=== PATIENT | male | born 1990 | race Caucasian/White ===

== ENCOUNTER 2024-06-18 12:27 | Emergency (ER) | payer OTHER, SELFPAY ==
[2024-06-18 12:56] VITALS: BP 140/80; PULSE 74; TEMP 37.1; O2SAT 99; BMI 19.5
--- NOTE | 2024-06-18 13:54 | CT_ITS ---
The [address] [address] Patient Name: VANIA FLORIAN MRN: [id number] date: 1990 Sex: M Assigned Patient Location: ER Current Patient Location: ER Accession/Order Number: [id number] Exam Date: 06/18/2024 14:12 Report Date: 06/18/2024 15:14 At the request of: RUDDY CHAU Procedure: CT cervical spine wo con EXAM: CT cervical spine wo con HISTORY: Pain. COMPARISON: None. TECHNIQUE: Contiguous transaxial images obtained from skullbase through cervical spine without administration of intravenous contrast. Coronal and sagittal reformations were obtained. Dose reduction: mA and/or kV are were adjusted by automated exposure control software based upon patients height and weight. FINDINGS: There is no prevertebral soft tissue swelling or acute cervical spine fracture. Intervertebral disc spaces and vertebral body heights are normal. There is no cervical listhesis. The osseous central canal and osseous neural foramina are patent. CT/CT cervical spine wo con IMPRESSION: 1. No acute cervical spine fracture. Electronically authenticated by: XIAO SALVADOR Date: 06/18/2024 15:14
--- NOTE | 2024-06-18 15:49 | ED_ITS ---
HPI HPI - General Adult General Chief complaint: Extremity Problem, Nontraumatic Stated complaint: UPPER LEFT EXTREMITY PAIN Time Seen by Provider: 06/18/24 15:40 Source: patient Mode of arrival: walk-in Limitations: no limitations History of Present Illness HPI narrative: Patient is a 33-year-old male who presents to the emergency department for a 4- month history of pain in the back of the neck radiating to the left shoulder and a burning pain going into his left arm. He has not been seen by his primary care provider for this. He states he was seen at the [facility] but no testing was done and he was not sent home with any prescriptions. He presents to the ER today because his was able to convince him to come into the ER. He denies any falls or injuries. No medications taken prior to arrival. Related Data Previous Rx's ?Medication ?Instructions ?Recorded ketorolac 10 mg tablet 10 mg PO TID PRN pain #10 tabs 06/18/24 methocarbamol 750 mg tablet 750 mg PO TID PRN pain #20 tabs 06/18/24 methylprednisolone 4 mg tablets in See Rx Instructions .Route 06/18/24 a dose pack (Medrol (Carlos)) .COMPLEX #21 ea Allergies Allergy/AdvReac Type Severity Reaction Status Date / Time No Known Drug Allergies Allergy Verified 06/18/24 12:56 Opioid HPI Opioid Management Most Recent Opioid Data: Last Pain Scale 6 06/18/24 16:11 06/18/24 Last OCT Pain Assessment 06/18/24 16:03 Review of Systems ROS Constitutional Denies: fever or chills Ears, nose, mouth, and throat Denies: throat pain or nasal congestion Cardiovascular Denies: chest pain Respiratory Denies: shortness of breath or cough Gastrointestinal Denies: nausea or vomiting Musculoskeletal Reports: neck pain and extremity pain; Denies: back pain Neurological Reports: numbness in extremities; Denies: weakness in extremities Hematologic/Lymphatic Denies: easy bruising or easy bleeding PFSH PFSH Social History Little interest or pleasure in doing things: not at all Feeling down, depressed, or hopeless: not at all Exam Narrative Exam Narrative: Gen.: Awake, alert, in no distress Head: Normocephalic, atraumatic ENT: Moist mucous membranes no bony point tenderness of the posterior cervical spine with diffuse tenderness of the paraspinal muscles of the left cervical spine and left trapezius area Respiratory: No respiratory distress Extremities: Moves extremities equally, 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, normal flexion and extension at the bilateral elbows Psych: Normal mood and affect Neuro: No focal neuro deficit Skin: Warm, dry, intact Constitutional Vital Signs, click to edit/add: Last Vital Signs Temp 98.8 F 06/18/24 12:56 Pulse 74 06/18/24 12:56 Resp 18 06/18/24 12:56 BP 140/80 06/18/24 12:56 Pulse Ox 99 06/18/24 12:56 O2 Del Method Room Air 06/18/24 12:56 Course Vital Signs Vital signs: Vital Signs Temperature 98.8 F 06/18/24 12:56 Pulse Rate 74 06/18/24 12:56 Respiratory Rate 18 06/18/24 12:56 Blood Pressure 140/80 06/18/24 12:56 Pulse Oximetry 99 06/18/24 12:56 Oxygen Delivery Method Room Air 06/18/24 12:56 Temperature 98.8 F 06/18/24 12:56 Pulse Rate 74 06/18/24 12:56 Respiratory Rate 18 06/18/24 12:56 Blood Pressure 140/80 06/18/24 12:56 Pulse Oximetry 99 06/18/24 12:56 Oxygen Delivery Method Room Air 06/18/24 12:56 Medical Decision Making MDM Narrative Medical decision making narrative: CT of the cervical spine shows no evidence of acute process. History and physical are consistent with cervical radiculopathy. Patient with no focal neurodeficits. Patient given education and reassurance, he was given orthopedic follow-up with referral at Dr. Huston's office where he may be able to be seen by spinal surgery. He was given a short course of steroid taper, muscle relaxants and NSAIDs. Return to the emergency department if symptoms change or worsen SUPERVISED APC VISIT, PHYSICIAN ATTESTATION: Based on the medical record the care appears appropriate. ? Medical Records Medical records reviewed: Yes I reviewed the patient's medical records Imaging Data CT cervical spine: Attestation: I have reviewed the pertinent imaging results. Radiologist's impression: ITS Impressions Cervical Spine CT 06/18/24 13:54 IMPRESSION: 1. No acute cervical spine fracture. Electronically authenticated by: XIAO SALVADOR Date: 06/18/2024 15:14 Discharge Plan Discharge Chief Complaint: Extremity Problem, Nontraumatic Clinical Impression: Cervical radiculopathy Patient Disposition: Home, Self-Care Time of Disposition Decision: 15:45 Condition: Good Prescriptions / Home Meds: New ketorolac 10 mg tablet 10 mg PO TID PRN (Reason: pain) Qty: 10 0RF methocarbamol 750 mg tablet 750 mg PO TID PRN (Reason: pain) Qty: 20 0RF methylprednisolone [Medrol (Carlos)] 4 mg tablets,dose pack See Rx Instructions .ROUTE .COMPLEX Qty: 21 0RF Rx Instructions: Taper as directed Print Language: Maltese Instructions: Cervical Radiculopathy (ED) Referrals: Physician,Non-Staff, MD [Primary Care Provider] - 1 week Shamar Huston MD [Physician] - 06/25/24 10:30 am Discharge Date/Time: 06/18/24 16:18
[2024-06-18] MEDS: HYDROCODONE/ACET 5-325 MG TABLET 1 TAB PO (16:02)
[2024-06-18] MEDS: KETOROLAC TROMETHAMINE 60 MG/2 ML VIAL IM (16:03)
[2024-06-18] MEDS: ORPHENADRINE 60 MG/ 2 ML VIAL IM (16:04)
== END 2024-06-18 16:18 | disposition home or self-care (01) ==
PROVIDERS: Emergency Provider Emergency Medicine; Family Provider Internal Medicine
DX: M54.12 Radiculopathy, cervical region (principal)
CPT/HCPCS: 72125; 96372; 99285; J1885; J2360